=== PATIENT | male | born 1970 | race Caucasian/White ===

== ENCOUNTER 2016-07-24 18:44 | Inpatient (IN) | payer OTHER, MEDICAID ==
[~2016-07-24] VITALS: Ht 182.9 cm; Wt 109.0 kg
[2016-07-24 19:29] LABS: BASOPHILS % (AUTO) 0.4 % (0.0-2.0); EOSINOPHILS % (AUTO) 2.5 % (1.0-6.0); HEMATOCRIT 46.2 % (41-53); HEMOGLOBIN 15.3 g/dL (13.5-17.5); LYMPHOCYTES # (AUTO) 2.4 K/uL (1.0-4.8); LYMPHOCYTES % (AUTO) 29.1 % (22.0-44.0); MEAN CORPUSCULAR HEMOGLOBIN 30.5 pg (26.0-34.0); MEAN CORPUSCULAR HGB CONC 33.2 G/dL (31.0-37.0); MEAN CORPUSCULAR VOLUME 92 fL (80-100); MONOCYTES # (AUTO) 0.5 K/uL (0.1-1.0); MONOCYTES % (AUTO) 6.1 % (2.0-9.0); NEUTROPHILS # (AUTO) 5.2 K/uL (1.8-7.7); NEUTROPHILS % (AUTO) 61.9 % (40.0-70.0); PLATELET COUNT (AUTO) 245 K/uL (150-450); RED BLOOD CELL COUNT(AUTO) 5.02 MIL/uL (4.50-5.90); RED CELL DISTRIBUTION WIDTH 12.9 % (11.5-14.5); WHITE BLOOD COUNT (AUTO) 8.4 K/uL (4.5-11.0)
[2016-07-24 19:33] LABS: ANION GAP 10 mmol/L (8-16); CARBON DIOXIDE 27 mmol/L (22-29); CHLORIDE 106 mmol/L (98-107); CREATININE 0.82 mg/dL (0.60-1.30); GLOMERULAR FILTR. RATE CALC > 60 mL/min (>60); POTASSIUM 3.6 mmol/L (3.5-5.1); SODIUM SERUM 143 mmol/L (136-145); UREA NITROGEN, BLOOD 11 mg/dL (7-18)
[2016-07-24 19:40] LABS: ALANINE AMINOTRANSFERASE 56 U/L (12-78); ALBUMIN 4.3 g/dL (3.4-5.0); ASPARTATE AMINOTRANSFERASE 25 U/L (15-37); BILIRUBIN,TOTAL 0.4 mg/dL (0.1-1.0); TOTAL PROTEIN, SERUM 7.9 g/dL (6.4-8.2)
[2016-07-24] MEDS ORDERED: HALOPERIDOL 5 MG TABLET PO ONE (19:45)
[2016-07-24] MEDS ORDERED: LORazepam 2 MG TABLET PO ONE (19:45)
[2016-07-24] MEDS ORDERED: HALOPERIDOL 5 MG TABLET PO PRN (22:15)
[2016-07-24] MEDS ORDERED: LORazepam 2 MG TABLET PO PRN (22:15)
[2016-07-24] MEDS ORDERED: ZOLPIDEM TARTRATE 10 MG TABLET PO PRN (22:15)
[2016-07-24 22:34] LABS: APPEARANCE,URINE CLEAR (CLEAR); GLUCOSE, URINE (UA) NEGATIVE (NEGATIVE); KETONES,URINE NEGATIVE (NEGATIVE); LEUKOCYTE ESTERASE ,URINE NEGATIVE (NEGATIVE); OCCULT BLOOD,URINE NEGATIVE (NEGATIVE); PH,URINE 6.5 (5.0-8.0); PROTEIN,URINE NEGATIVE (NEGATIVE)
[2016-07-24 22:40] LABS: ADD UA MICROSCOPIC NO
[2016-07-25 00:25] VITALS: BP 125/77
[2016-07-25] MEDS ORDERED: INFLUENZA VIRUS VACCINE QVS 2016-17 (3YR+)/PF 60 MCG/0.5 ML SYRINGE IM ONE (00:30)
[2016-07-25] MEDS ORDERED: MAG HYDROX/AL HYDROX/SIMETH ES 30 ML SUSPENSION UDCUP PO PRN (09:45)
[2016-07-25] MEDS ORDERED: BENZOCAINE/MENTHOL LOZENGE [8 LOZENGES/PACKET] MM PRN (09:45)
[2016-07-25] MEDS ORDERED: CloNIDine HCL 0.1 MG TABLET PO PRN (09:45)
[2016-07-25] MEDS ORDERED: ALBUTEROL SULFATE HFA 90 MCG/PUFF 8 GM INHALER IH PRN (09:45)
[2016-07-25] MEDS ORDERED: IBUPROFEN 600 MG TABLET PO PRN (09:45)
[2016-07-25] MEDS ORDERED: ACETAMINOPHEN 325 MG TABLET PO PRN (09:45)
[2016-07-25] MEDS ORDERED: MAGNESIUM HYDROXIDE SUSPENSION 30 ML UDCUP PO PRN (09:45)
[2016-07-25] MEDS ORDERED: PETROLATUM,WHITE 71 GM JELLY TP PRN (09:45)
[2016-07-25] MEDS ORDERED: BACITRACIN 28.4 GM OINTMENT TP PRN (09:45)
[2016-07-25] MEDS ORDERED: ONDANSETRON HCL 4 MG TABLET PO PRN (09:45)
[2016-07-25] MEDS ORDERED: LOPERAMIDE HCL 2 MG CAPSULE PO PRN (09:45)
[2016-07-25 11:25] VITALS: BP 136/86
[2016-07-25 17:06] VITALS: BP 126/78
[2016-07-26 10:30] VITALS: BP 131/81
[2016-07-26 17:05] VITALS: BP 144/77
[2016-07-27 08:30] VITALS: BP 139/78
== END 2016-07-27 14:41 | disposition home or self-care (01) | DRG 885 ==
LOC: EMS 18:51 → EEVIPCON 18:51 → 3EI 23:41
PROVIDERS: ADMIT Psychiatry & Neurology Psychiatry; ATTEND Psychiatry & Neurology Psychiatry
DX: F25.9 Schizoaffective disorder, unspecified (principal); F31.9 Bipolar disorder, unspecified; F17.210 Nicotine dependence, cigarettes, uncomplicated; F14.90 Cocaine use, unspecified, uncomplicated; F10.129 Alcohol abuse with intoxication, unspecified; Y90.7 Blood alcohol level of 200-239 mg/100 ml; Z71.41 Alcohol abuse counseling and surveillance of alcoholic; Z71.51 Drug abuse counseling and surveillance of drug abuser; Z71.6 Tobacco abuse counseling; Z91.14 Patient's other noncompliance with medication regimen; Z56.0 Unemployment, unspecified; Z28.21 Immunization not carried out because of patient refusal
CPT/HCPCS: 99285; G0480; Q0162

== ENCOUNTER 2017-10-28 18:03 | Inpatient (IN) | payer OTHER, MEDICAID ==
[~2017-10-28] VITALS: Ht 180.3 cm; Wt 111.7 kg
[2017-10-28 18:45] LABS: BASOPHILS % (AUTO) 0.5 % (0.0-2.0); EOSINOPHILS % (AUTO) 2.4 % (1.0-6.0); HEMATOCRIT 44.4 % (41-53); LYMPHOCYTES # (AUTO) 2.4 K/uL (1.0-4.8); LYMPHOCYTES % (AUTO) 18.8 % (22.0-44.0); MEAN CORPUSCULAR HEMOGLOBIN 30.4 pg (26.0-34.0); MEAN CORPUSCULAR HGB CONC 33.8 G/dL (31.0-37.0); MEAN CORPUSCULAR VOLUME 90 fL (80-100); MONOCYTES % (AUTO) 7.4 % (2.0-9.0); NEUTROPHILS # (AUTO) 9.1 K/uL (1.8-7.7); NEUTROPHILS % (AUTO) 70.9 % (40.0-70.0); PLATELET COUNT (AUTO) 293 K/uL (150-450); RED BLOOD CELL COUNT(AUTO) 4.95 MIL/uL (4.50-5.90); RED CELL DISTRIBUTION WIDTH 12.9 % (11.5-14.5)
[2017-10-28 18:56] LABS: ANION GAP 8 mmol/L (8-16); CALCIUM, TOTAL 8.6 mg/dL (8.8-10.5); CARBON DIOXIDE 26 mmol/L (22-29); CHLORIDE 101 mmol/L (98-107); CREATININE 0.93 mg/dL (0.60-1.30); GLOMERULAR FILTR. RATE CALC > 60 mL/min (>60); GLUCOSE,RANDOM 106 mg/dL (70-110); SODIUM SERUM 135 mmol/L (136-145); UREA NITROGEN, BLOOD 13 mg/dL (7-18)
[2017-10-28 19:08] LABS: AMPHET/METH SCREEN,URINE NEGATIVE (NEGATIVE); BARBITURATE SCREEN, URINE NEGATIVE (NEGATIVE); BENZODIAZEPINES SCREEN,URINE NEGATIVE (NEGATIVE); CANNABINOID SCREEN,URINE NEGATIVE (NEGATIVE); COCAINE SCREEN,URINE NEGATIVE (NEGATIVE); METHADONE SCREEN, URINE NEGATIVE (NEGATIVE); OPIATE SCREEN,URINE NEGATIVE (NEGATIVE)
[2017-10-28 19:09] LABS: PHENCYCLIDINE SCREEN,URINE NEGATIVE (NEGATIVE)
[2017-10-28 19:11] LABS: PLATELET MORPHOLOGY COMMENT LARGE PLTS PRESENT
[2017-10-28 19:13] LABS: ALANINE AMINOTRANSFERASE 32 U/L (12-78); ALBUMIN 3.9 g/dL (3.4-5.0); ALKALINE PHOSPHATASE 95 U/L (46-116); ASPARTATE AMINOTRANSFERASE 17 U/L (15-37); BILIRUBIN,TOTAL 0.2 mg/dL (0.1-1.0); THYROID STIMULATING HORMONE 0.82 uIU/mL (0.36-3.74); TOTAL PROTEIN, SERUM 7.8 g/dL (6.4-8.2)
[2017-10-28] MEDS ORDERED: HALOPERIDOL LACTATE 5 MG/ML VIAL IM ONE (20:30)
[2017-10-28] MEDS ORDERED: LORazepam 2 MG/ML VIAL IM ONE (20:30)
[2017-10-28] MEDS ORDERED: DiphenhydrAMINE HCL 50 MG/ML VIAL IM ONE (20:30)
[2017-10-28] MEDS ORDERED: ZOLPIDEM TARTRATE 10 MG TABLET PO PRN (22:45)
[2017-10-28] MEDS ORDERED: HALOPERIDOL 5 MG TABLET PO PRN (22:45)
[2017-10-29] VITALS (8 sets, daily range): BP systolic 124–145; BP diastolic 68–86
[2017-10-29 08:20] LABS: CHOL/HDL RATIO 4.8 (4.2-7.3)
[2017-10-29] MEDS: LORazepam 2 MG TABLET PO PRN (17:16)
[2017-10-29] MEDS: DIVALPROEX SODIUM 500 MG DR TABLET PO SCH (20:35)
[2017-10-29] MEDS: OLANZapine 5 MG TABLET PO SCH (20:35)
[2017-10-30 00:05] VITALS: BP 133/72
[2017-10-30 05:02] VITALS: BP 142/88
[2017-10-30 08:00] VITALS: BP 130/71
[2017-10-30] MEDS: DIVALPROEX SODIUM 500 MG DR TABLET PO SCH ×2 (08:19→20:24)
[2017-10-30 11:00] VITALS: BP 136/80
[2017-10-30 16:00] VITALS: BP 120/66
[2017-10-30 16:02] VITALS: BP 120/66
[2017-10-30] MEDS: LORazepam 2 MG TABLET PO PRN (16:04)
[2017-10-30] MEDS: OLANZapine 5 MG TABLET PO SCH (20:23)
[2017-10-31 06:26] VITALS: BP 118/75
[2017-10-31 08:03] VITALS: BP 123/71
[2017-10-31 08:05] VITALS: BP 125/74
[2017-10-31] MEDS: DIVALPROEX SODIUM 500 MG DR TABLET PO SCH ×2 (08:16→20:26)
[2017-10-31 16:00] VITALS: BP 129/81
[2017-10-31 16:04] VITALS: BP 129/81
[2017-10-31] MEDS: OLANZapine 5 MG TABLET PO SCH (20:26)
[2017-11-01 06:37] VITALS: BP 116/76
[2017-11-01 08:00] VITALS: BP 126/68
[2017-11-01 08:08] VITALS: BP 126/68
[2017-11-01] MEDS: DIVALPROEX SODIUM 500 MG DR TABLET PO SCH (08:21)
[2017-11-01] MEDS ORDERED: DIVA500T35 PO (11:46)
[2017-11-01] MEDS ORDERED: OLAN5TAB27 PO (11:47)
== END 2017-11-01 13:35 | disposition home or self-care (01) | DRG 885 ==
LOC: EMS 18:04 → B3A 23:00
DX: F25.0 Schizoaffective disorder, bipolar type (principal); E87.1 Hypo-osmolality and hyponatremia; F10.10 Alcohol abuse, uncomplicated; E78.1 Pure hyperglyceridemia; D72.829 Elevated white blood cell count, unspecified; F12.90 Cannabis use, unspecified, uncomplicated; F17.210 Nicotine dependence, cigarettes, uncomplicated; Z83.3 Family history of diabetes mellitus
CPT/HCPCS: 84443; 96372; 99285; G0480; J1200; J1630; J2060

== ENCOUNTER → 2017-12-30 | Outpatient (CLI) | payer OTHER, MEDICAID ==
[~2017-12-30] MED LIST: DIVA-78 PO; OLAN5TAB27 PO
== END | disposition home or self-care (01) ==
LOC: LABMN 10:30
DX: F25.0 Schizoaffective disorder, bipolar type (principal); Z83.3 Family history of diabetes mellitus; F10.10 Alcohol abuse, uncomplicated; F17.200 Nicotine dependence, unspecified, uncomplicated

== ENCOUNTER 2024-06-05 09:55 | Emergency (ER) | payer OTHER ==
[~2024-06-05] VITALS: Ht 182.9 cm; Wt 104.5 kg
[~2024-06-05 09:55] MED LIST changes: +DIVA-112 PO; -DIVA-78 PO; -OLAN5TAB27 PO; +OLAN5TAB77 PO
[2024-06-05 10:06] VITALS: TEMP 98.7
[2024-06-05 11:23] LABS: BASOPHILS % (AUTO) 0.8 % (0.0-2.0); EOSINOPHILS % (AUTO) 0.5 % (1.0-6.0); HEMATOCRIT 43.5 % (41-53); HEMOGLOBIN 14.9 g/dL (13.5-17.5); LYMPHOCYTES # (AUTO) 1.6 K/uL (1.0-4.8); MEAN CORPUSCULAR HEMOGLOBIN 31.8 pg (26.0-34.0); MEAN CORPUSCULAR HGB CONC 34.2 G/dL (31.0-37.0); MEAN CORPUSCULAR VOLUME 93 fL (80-100); MONOCYTES # (AUTO) 1.7 K/uL (0.1-1.0); MONOCYTES % (AUTO) 10.8 % (2.0-9.0); NEUTROPHILS # (AUTO) 12.4 K/uL (1.8-7.7); NEUTROPHILS % (AUTO) 77.9 % (40.0-70.0); PLATELET COUNT (AUTO) 311 K/uL (150-450); RED BLOOD CELL COUNT(AUTO) 4.69 MIL/uL (4.50-5.90); RED CELL DISTRIBUTION WIDTH 13.2 % (11.5-14.5)
[2024-06-05] MEDS: CefTRIAXone 1 GM/DEXTROSE 50 ML IV ONE (11:25)
[2024-06-05] MEDS: KETOROLAC TROMETHAMINE 30 MG/ML VIAL IVP ONE (11:26)
[2024-06-05 11:37] LABS: ANION GAP 6 mmol/L (8-16); CARBON DIOXIDE 30 mmol/L (22-29); CHLORIDE 97 mmol/L (98-107); CREATININE 0.94 mg/dL (0.60-1.30); GLOMERULAR FILTR. RATE CALC > 60 mL/min (>60); GLUCOSE,RANDOM 296 mg/dL (70-110); POTASSIUM 4.5 mmol/L (3.5-5.1); SODIUM SERUM 133 mmol/L (136-145); UREA NITROGEN, BLOOD 14 mg/dL (7-18)
[2024-06-05 11:58] VITALS: BP 132/77; PULSE 98; RESP 18; O2SAT 99
[2024-06-05] MEDS: DOXYCYCLINE HYCLATE 100 MG in DEXTROSE 5%-WATER 100 ML IV ONE (12:17)
[2024-06-05] MEDS ORDERED: CEPH-558 PO (12:19)
[2024-06-05] MEDS ORDERED: DOXY-354 PO (12:19)
[2024-06-05] MEDS ORDERED: METF-1211 PO (12:31)
== END 2024-06-05 13:10 | disposition home or self-care (01) ==
LOC: EMS 10:03
DX: S51.802A Unspecified open wound of left forearm, initial encounter (principal); L02.11 Cutaneous abscess of neck; L03.221 Cellulitis of neck; E11.65 Type 2 diabetes mellitus with hyperglycemia; F20.9 Schizophrenia, unspecified; F31.9 Bipolar disorder, unspecified; F17.210 Nicotine dependence, cigarettes, uncomplicated; X58.XXXA Exposure to other specified factors, initial encounter; Y93.89 Activity, other specified; Y92.89 Other specified places as the place of occurrence of the external cause; Y99.8 Other external cause status
CPT/HCPCS: 99284; 96365; 96375; 80048; 85025; 36415; 96368; J1885; J0696; J3490; J7060